=== PATIENT | male | born 1970 | race Caucasian/White ===

== ENCOUNTER 2017-03-31 14:27 | Emergency (ER) | payer OTHER ==
[~2017-03-31] VITALS: Ht 182.9 cm; Wt 117.9 kg
[2017-03-31] MEDS ORDERED: DIPHTH,PERTUSS(ACELL),TET TOX 0.5 ML DISP.SYRIN. VAX IM ONE (15:15)
--- NOTE | 2017-03-31 15:20 | ED.ADGEN ---
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 Patient was walking and slipped on a mat while at work and struck a metal pole with his face and mouth. Patient has a through and through laceration below his right lip with avulsion of R frontal upper incisor and entrapment of adjacent upper incisors. The injury occurred just prior to the arrival. Patient reports minimal pain. Tetanus is upto date. Review of Systems Review of Systems ROS as per HPI. Current Medications Current Medications Current Medications Medications (Trade) Dose Ordered Sig/Harris Start Time Stop Time Status Last Admin Dose Admin Acetaminophen/ Hydrocodone Bitart (Lortab 10/325) 1 tab 1X ONCE 03/31/17 15:45 03/31/17 15:46 DC 03/31/17 15:51 1 TAB Diphtheria/ Tetanus/Acell Pertussis (Boostrix) 0.5 ml ONCE ONCE 03/31/17 15:15 03/31/17 15:16 DC 03/31/17 15:55 0.5 ML Penicillin V Potassium (Veetid) 500 mg 1X ONCE 03/31/17 15:45 03/31/17 15:46 DC 03/31/17 15:50 500 MG Allergies Allergies Allergies Coded Allergies Type Severity Reaction Last Updated Verified No Known Drug Allergies 03/31/17 No Physical Exam Physical Exam Constitutional: Well developed, well nourished, no acute distress, non-toxic appearance. [] HENT: Normocephalic, 2 cm through and through laceration over right anterior chin extending into inner mucosal below lower lip. bilateral external ears normal, oropharynx moist, missing right upper central incisor with fractured and right lateral incisors and locked left central incisor, nose normal. No maxillary sinus swelling,[] Eyes: PERRLA, EOMI, conjunctiva normal, no discharge. [] Neck: Normal range of motion [] Psychologic: Affect normal, judgement normal, mood normal. [] Current Patient Data Vital Signs Vital Signs Date Time Temp Pulse Resp B/P (MAP) Pulse Ox O2 Delivery O2 Flow Rate FiO2 03/31/17 15:51 14 99 03/31/17 14:33 97.9 73 133/63 (86) Room Air 97.9 EKG EKG [] Radiology/Procedures Radiology/Procedures [Laceration repair note Location, right anterior chin Description: 2 cm horizontal Patient was injected with percent with epinephrine directly into the margins of the laceration. The laceration was unexpected cleaned and closed with #2, 6-0 Prolene simple interrupted sutures. Patient's inner mucosa closed with #1, 5-0 Vicryl sutures with good wound approximation. given oral hygiene laceration care instructions. Course & Med Decision Making Course & Med Decision Making Pertinent Labs and Imaging studies reviewed. (See chart for details) [Case reviewed in detail with Dr. cheney. Recommendations are for antibiotics, clear liquid diet with office follow-up tomorrow morning. Patient instructed to follow strict liquid diet with exception of antibiotic and pain medication and remain nothing by mouth after midnight. Patient given discharge instruction with directions to Dr. Velazco office. He is instructed to follow-up with his work compensation and have sutures removed in 7 days. Patient verbalizes understanding agreement discharge instructions prior to departure.] Dragon Disclaimer Dragon Disclaimer This electronic medical record was generated, in whole or in part, using a voice recognition dictation system. KANIKA MARADIAGA DO Mar 31, 2017 15:20
[2017-03-31 15:30] VITALS: BP 138/67
[2017-03-31] MEDS ORDERED: HYDROcodone/APAP 10/325 1 TAB TABLET PO ONE (15:45)
[2017-03-31] MEDS ORDERED: PENICILLIN V K 250 MG TABLET. PO ONE (15:45)
== END 2017-03-31 17:13 | disposition home or self-care (01) ==
LOC: ER 14:27
DX: S03.2XXA Dislocation of tooth, initial encounter (principal); S01.511A Laceration without foreign body of lip, initial encounter; I10 Essential (primary) hypertension; W01.198A Fall on same level from slipping, tripping and stumbling with subsequent striking against other object, initial encounter; Y93.01 Activity, walking, marching and hiking; Y99.8 Other external cause status; Y92.89 Other specified places as the place of occurrence of the external cause
CPT/HCPCS: 12011; 90471; 90715; 99283-25